=== PATIENT | female | born 1970 | race African-American/Black ===

== ENCOUNTER 2018-07-19 07:21 | Emergency (ER) | payer OTHER ==
[2018-07-19 07:33] VITALS: BP 129/71
[2018-07-19] MEDS ORDERED: Fluorescein Sodium TOPICAL* 1 MG TEST STRIP OPHTHALMIC ONE (07:35)
[2018-07-19] MEDS ORDERED: Tetracaine 0.5% OPTH.SOL 4 ML* 1 DROP BTL RIGHT EYE ONE (07:35)
--- NOTE | 2018-07-19 08:08 | UC ---
Eye Complaint HPI - HPI Summary HPI Summary: 47-year-old woman comes to clinic today with a chief complaint of left eye pain. Pain started last evening after she was putting in her contact. She removed the contact the pain did not go away. She's had clear drainage from the eye since then. Lites and blinking makes the pain worse. Keeping the eye closed decreases the pain some. Patient's unable tell if there is any change in vision as without the contact her vision is very poor. - History of Current Complaint Chief Complaint: UCEye Stated Complaint: EYE COMPLAINT Time Seen by Provider: 07/19/18 07:46 Pain Intensity: 7 - Allergies/Home Medications Allergies/Adverse Reactions: Allergies Allergy/AdvReac Type Severity Reaction Status Date / Time No Known Allergies Allergy Verified 07/19/18 07:33 Home Medications: Home Medications Amberen 2 tab PO DAILY 07/19/18 [History Confirmed 07/19/18] Cholecalciferol (Vitamin D3) [Vitamin D3] 1,000 unit PO DAILY 07/19/18 [History Confirmed 07/19/18] PMH/Surg Hx/FS Hx/Imm Hx Previously Healthy: Yes - Surgical History Surgical History: None - Family History Known Family History: Positive: Non-Contributory - Social History Alcohol Use: Occasionally Substance Use Type: None Smoking Status (MU): Former Smoker Length of Time of Smoking/Using Tobacco: quit 18 years ago Have You Smoked in the Last Year: No Review of Systems All Other Systems Reviewed And Are Negative: Yes Constitutional: Positive: Negative Skin: Positive: Negative Eyes: Positive: Drainage - LEFT, Photophobia - LEFT ENT: Positive: Negative Respiratory: Positive: Negative Cardiovascular: Positive: Negative Gastrointestinal: Positive: Negative Motor: Positive: Negative Neurovascular: Positive: Negative Musculoskeletal: Positive: Negative Neurological: Positive: Negative Psychological: Positive: Negative Is Patient Immunocompromised?: No Physical Exam Triage Information Reviewed: Yes Appearance: Well-Appearing, Well-Nourished, Pain Distress - MILD Vital Signs: Initial Vital Signs Temp 97.6 F 07/19/18 07:27 Pulse 80 07/19/18 07:27 Resp 18 07/19/18 07:27 BP 129/71 07/19/18 07:27 Pulse Ox 100 07/19/18 07:27 Vital Signs Reviewed: Yes Eyes: Positive: Conjunctiva Inflamed - LEFT, Discharge - CLEAR LEFT, Other: - Left eye examination with fluorescein stain shows a 3 mm x 2 mm corneal abrasion directly over the pupil. No other injuries seen.PERRLA/EOMI. globe is intact pupils are symmetric. ENT: Negative: Nasal congestion Neck: Positive: Supple Respiratory: Positive: No respiratory distress Musculoskeletal Exam: Normal Musculoskeletal: Positive: Strength Intact, ROM Intact Neurological Exam: Normal Neurological: Positive: Alert, Muscle Tone Normal Psychological Exam: Normal Psychological: Positive: Age Appropriate Behavior Skin Exam: Normal Eye Complaint Course/Dx - Differential Dx/Diagnosis Provider Diagnosis: Left corneal abrasion Discharge - Sign-Out/Discharge Documenting (check all that apply): Patient Departure All imaging exams completed and their final reports reviewed: No Studies - Discharge Plan Condition: Stable Disposition: HOME Prescriptions: Tobramycin 0.3% OPHTH.MARY KAY* 1 drop LEFT EYE Q4H #1 btl Patient Education Materials: Corneal Abrasion (ED) Forms: *Work Release Referrals: [facility] [place] [facility] [Outside] Additional Instructions: FOLLOW UP WITH YOUR [employer] IF NOT COMPLETELY IMPROVED. GET RECHECKED FOR ANY WORSENING OF YOUR CONDITION OR QUESTIONS OR CONCERNS. - Billing Disposition and Condition Condition: STABLE Disposition: Home
== END 2018-07-19 08:15 | disposition home or self-care (01) ==
LOC: UCEAST 07:21
DX: H18.822 Corneal disorder due to contact lens, left eye (principal); Z87.891 Personal history of nicotine dependence
CPT/HCPCS: 99202; A9270-GY; G0463

== ENCOUNTER 2019-03-23 12:12 | Emergency (ER) | payer BC, OTHER ==
--- NOTE | 2019-03-23 13:59 | UC ---
Respiratory Complaint HPI - HPI Summary HPI Summary: 48 y/o female presents to the urgent care c/o URI symptoms for the past 3 days. Pt reports she works in a [employer] and she has been w/ a nasal congestion for the past week. However 3 days ago symptoms worsen w/ productive cough, chills, phlegm is yellow and last night she couldn't sleep due to bronchospasm. She also developed low subjective grade fever and she has been taking Ibuprofen PO to alleviate symptoms. Pt denies SOB, respiratory distress, wheezing, chest pain, abdominal pain, N/V/D, dizziness. She states RT side chest pain when she coughs. She stopped smoking about 1 week ago and she denies taking OCP or recent travel. - History of Current Complaint Chief Complaint: UCGeneralIllness Stated Complaint: FEVER, COUGH AND SIDE PAIN Time Seen by Provider: 03/23/19 13:53 Hx Obtained From: Patient Hx Last Menstrual Period: 2 yrs ?: No - Menopausal Onset/Duration: Gradual Onset, Lasting Days - 6 days, Still Present, Worse Since - yesterday w/ producitve yellowish phlegm and RT side chest pain when she cough Timing: Intermittent Episodes Severity Initially: Mild Severity Currently: Moderate Pain Intensity: 6 Pain Scale Used: 0-10 Numeric Character: Cough: Productive, Sputum Description: - yellowish Aggravating Factors: Recumbent Position Alleviating Factors: OTC Meds - Ibuprofen PO Associated Signs And Symptoms: Positive: Fever, Chills, URI. Negative: Wheezing , Hemoptysis, Dizziness - Risk Factors Pulmonary Embolism Risk Factors: Negative - Allergies/Home Medications Allergies/Adverse Reactions: Allergies Allergy/AdvReac Type Severity Reaction Status Date / Time No Known Allergies Allergy Verified 03/23/19 12:49 PMH/Surg Hx/FS Hx/Imm Hx Previously Healthy: Yes - Pt denies PMHX - Surgical History Surgical History: None - Family History Known Family History: Positive: None - Pt denies FMHX, Non-Contributory - Social History Occupation: Employed Full-time Lives: With Family Alcohol Use: Occasionally Substance Use Type: None Smoking Status (MU): Former Smoker Length of Time of Smoking/Using Tobacco: quit 18 years ago Have You Smoked in the Last Year: No Review of Systems All Other Systems Reviewed And Are Negative: Yes Constitutional: Positive: Fever - subjective low grade fever this morning, Other - body aches Skin: Positive: Negative Eyes: Positive: Negative ENT: Positive: Nasal Discharge - clear Respiratory: Positive: Cough - productive w/ yellowish phlegm and brochospasm Cardiovascular: Positive: Negative Gastrointestinal: Positive: Negative Genitourinary: Positive: Negative Motor: Positive: Negative Neurovascular: Positive: Negative Musculoskeletal: Positive: Negative Neurological: Positive: Headache - mild Psychological: Positive: Negative Is Patient Immunocompromised?: No Physical Exam - Summary Physical Exam Summary: Vital Signs Reviewed: Yes General: well developed, well nourished female sitting in the examining table w/ o any apparent distress Eyes: Positive: Conjunctiva Clear - PERRLA, EOMI, fundi grossly normal ENT: Positive: Normal ENT inspection, Hearing grossly normal, Pharynx normal, Nasal congestion - edematous and erythematous nasal mucosa, Nasal drainage - yellowish drainage, TMs normal. Negative: Tonsillar swelling, Tonsillar exudate Neck: Positive: Supple, Nontender, No Lymphadenopathy Respiratory: no orthopnea or dyspnea. Able to speak in full sentences, no retractions or accessory muscle use, no tripod position, stridor, or head bobbing. Positive breath sounds bilaterally. mild Rhonchi on the left upper posterior lung and decreased breath sounds in the RT lung. no wheezing, no crackles or rales. Cardiovascular: Positive: RRR, No Murmur, Pulses Normal, Brisk Capillary Refill Abdomen Description: Positive: Nontender, No Organomegaly, Soft. Negative: CVA Tenderness (R), CVA Tenderness (L) Bowel Sounds: Positive: Present Musculoskeletal Exam: Normal Musculoskeletal: Positive: Strength Intact, ROM Intact, No Edema Neurological Exam: Normal Psychological Exam: Normal Skin Exam: Normal Triage Information Reviewed: Yes Vital Signs: Initial Vital Signs Temp 99.7 F 03/23/19 12:45 Pulse 93 03/23/19 12:45 Resp 18 03/23/19 12:45 BP 131/75 03/23/19 12:45 Pulse Ox 100 03/23/19 12:45 Respiratory Course/Dx - Course Course Of Treatment: 48 y/o female presents to the urgent care c/o URI symptoms for the past 3 days. Pt reports she works in a [employer] and she has been w/ a nasal congestion for the past week. However 3 days ago symptoms worsen w/ productive cough, chills, phlegm is yellow and last night she couldn't sleep due to bronchospasm. She also developed low subjective grade fever and she has been taking Ibuprofen PO to alleviate symptoms. Pt denies SOB, respiratory distress, wheezing, chest pain, abdominal pain, N/V/D, dizziness. She states RT side chest pain when she coughs. She stopped smoking about 1 week ago and she denies taking OCP or recent travel. Hx obtained. Pt is hemodynamically stable, A&OX3, Vitals:WNL. O2Sat:100% HR:93 bpm, Pt with mild Rhonchi on the left upper posterior lung and decreased breath sounds in the RT lung. Chest X-ray ordered to r/o pneumonia, However PE is also in the differential. However according WELLS OR PERC criteria: Pt is less than 50, HR<100, no Hx of DVT or PE , no use of OCP, no Hx of malignacy, Pt is low risk. Chest X-ray . IMPRESSION: RIGHT UPPER LOBE CONSOLIDATION. RECOMMEND FOLLOW-UP UNTIL RESOLUTION TO EXCLUDE UNDERLYING PULMONARY PARENCHYMAL PATHOLOGY as per radiologist. Rapid Influenza A &B ordered: negative. I discussed all the findings and test results with the patient. Pt given Albuterol Neb at the clinic by nurse to alleviate bronchospasm , Pt tolerated well treatment and felt better. Pt Rx Doxycycline and Albuterol inhaler as directed below. She was instructed to go to the emergency room immediately if symptoms worsens despite antibiotic treatment. Also recommended to f/u w/ PCP if not improvement of symptoms and for repeat chest X-ray to make sure full resolution of pneumonia. All questions were answered at patient satisfaction. There were no further complaints or concerns. Pt left the clinic hemodynamically stable, A&OX3 - Differential Dx/Diagnosis Differential Diagnosis/HQI/PQRI: Asthma, Bronchitis, Exacerbation Of COPD, Lower Resp Infection, Sinusitis, Other - PE, pneumonia Provider Diagnosis: Right upper lobe pneumonia Discharge ED - Sign-Out/Discharge Documenting (check all that apply): Patient Departure - D/C home All imaging exams completed and their final reports reviewed: Yes - Discharge Plan Condition: Stable Disposition: HOME Prescriptions: Albuterol HFA INHALER* [Ventolin HFA Inhaler*] 1 - 2 puff INH Q6H PRN #1 mdi PRN Reason: bronchospams DOXYcycline CAP(*) [DOXYcycline 100MG CAP(*)] 100 mg PO BID #20 cap Patient Education Materials: Community Acquired Pneumonia (ED) Forms: *Work Release Referrals: [facility] [place] [facility] [Outside] Additional Instructions: 1-Please take full course of Doxycycline PO antibiotics to avoid resistance. Take Ibuprofen PO q6-8hrs prns to alleviate pain and fever. 2-Take Robitussin and use the albuterol inhaler to alleviate cough. Increase fluid intake, rest and eat well. Avoid strenuous exercise 3- If symptoms do not improve or worsen or your develop SOB or elevated heart beat with fever and severe cough, chest pain and blood in your sputum please go immediately to the ER further evaluation and treatment. You were educated on PE and if you are not improving w/ the treatment please go immediately to the ER 4-Please f/u w/ yur PCP in 2-3 days to check your symptoms are improving and when you finish full course of antibiotic please f/u w/ your PCP for repeat Chest X-ray for complete resolution of your pneumonia. - Billing Disposition and Condition Condition: STABLE Disposition: Home - Attestation Statements Provider Attestation: Per institutional requirements, I have reviewed the chart, however, I was not consulted specifically or made aware of this patient by the midlevel provider. I did not personally evaluate, interact with , or disposition this patient.
[2019-03-23 14:38] LABS: Influenza A Molecular NEGATIVE (Negative); Influenza B Molecular NEGATIVE (Negative)
[2019-03-23 15:04] VITALS: BP 122/68
== END 2019-03-23 15:25 | disposition home or self-care (01) ==
LOC: UCEAST 12:12
DX: J18.1 Lobar pneumonia, unspecified organism (principal); Z87.891 Personal history of nicotine dependence
CPT/HCPCS: 71046; 99212; G0463